=== PATIENT | female | born 1965 | race Caucasian/White ===

== ENCOUNTER 2017-02-23 09:11 | Day surgery (SDC) | payer BC ==
[~2017-02-23 09:11] MED LIST: RINGERS SOLUTION,LACTATED 1,000 ML IV PRN
--- OUTSIDE RECORDS SUMMARY | 2017-02-23 09:16 | XMS REPORT | Continuity of Care Document ---
:1965 Author Organization [facility] ([facility]) Address [address] [place] [address] Phone [phone] Care Team Providers Name Role Phone Unavailable Primary Care Provider Unavailable Source Comments This disclosure is being made pursuant to the Care Everywhere program, applicable federal and state laws, and may not contain all informaitonavailable regarding this patient.[facility] ([facility]) Active Allergies and Adverse Reactions Not on File Current Medications Not on file Active Problems Not on file Immunizations Name Dates Previously Given Next Due Rubella 12/09/1996 Social History Tobacco Use Types Packs/Day Years Used Date Never Assessed Plan of Care Health Maintenance Due Date Last Done Comments HCV Screening 1965 Hepatitis B Vaccine (1 of 3 - Primary Series) 1965 Tdap Vaccine 1976 Lipid Disorder Screening 1983 MMR Vaccine 1983 Td Vaccine 1983 Cervical Cancer Screening 1995 Mammogram 2005 Colonoscopy 2015 Influenza Vaccine: Seasonal (#1) 05/24/2016 Results from Last 3 Months Not on file
[2017-02-23] MEDS ORDERED: RINGERS SOLUTION,LACTATED 1,000 ML IV ONE (09:45)
[2017-02-23] MEDS ORDERED: RINGERS SOLUTION,LACTATED 1,000 ML IV PRN (10:42)
[2017-02-23 11:41] VITALS: BP 123/84
--- NOTE | 2017-02-23 14:04 | OR ---
Operative Report - Dictated Report Narrative: OPERATIVE REPORT DATE OF OPERATION: 02/23/2017 PREOPERATIVE DIAGNOSIS: No prior dedicated colon studies. Family history of colon cancer POSTOPERATIVE DIAGNOSIS: Moderate sigmoid diverticulosis OPERATION: Colonoscopy SURGEON: Gema Lim MD ANESTHESIA: ANALY Gordon CRNA INDICATIONS FOR PROCEDURE: Patient is a 51-year-old female referred by Dr. Matthews. The patient has had no previous dedicated colon studies. Her grandfather had colon cancer at age 60. The patient is currently asymptomatic FINDINGS: Moderate sigmoid diverticulosis otherwise normal colonoscopy to the cecum NARRATIVE OF PROCEDURE: The patient was identified in the holding area, and prior to the administration of anesthetic, a multidisciplinary timeout was observed. With the patient in the left lateral position and after the administration of intravenous sedation, the perineum was inspected. There was no evidence of pilonidal disease or skin breakdown. The external appearance of the anus was normal. Sphincter tone was good. The flexible fiberoptic colonoscope was inserted into the rectum which was insufflated with air. The rectal mucosa and submucosal vascular pattern appeared normal, the prep was seen to be complete. The scope was advanced through a very tortuous sigmoid colon, which contained numerous large non-impacted noninflamed diverticular openings. The scope was advanced up the descending colon, and around the splenic flexure where the triangular haustral architecture of the transverse colon was seen. The scope was advanced across the transverse colon, around the hepatic flexure to the cecum, where the confluence of tenia and the ileocecal valve were identified. The mucosa at this level appeared normal. The scope was then slowly withdrawn in a circular fashion so that all aspects of colonic mucosa were inspected. The colon was normal in caliber and the sigmoid colon was very tortuous. The haustral architecture appeared well preserved throughout with no evidence of external compression. The mucosa and submucosal vascular pattern appeared normal, specifically there was no gross evidence to suggest colitis or inflammatory bowel disease and no AV malformations were seen. The diverticulosis was moderate in degree and confined primarily to the sigmoid colon. No polyps were encountered. The scope was gradually withdrawn to the level of the rectum. As much insufflated air as possible was removed. The scope was withdrawn from the patient and the procedure terminated. The patient tolerated the anesthetic and procedure well without complication and was transferred back to the ambulatory surgery area awake and in stable condition. The patient remained stable throughout a period of postoperative observation. She denied abdominal discomfort, was able to tolerate by mouth intake, and was up without assistance. I shared the operative findings with the patient and she was given copies of the photographs which appear in the medical record. She was discharged home with instructions not to engage in hazardous activity today , but may resume normal activity tomorrow, and advance diet as tolerated. She is to continue those medications as listed in the history and physical exam. A pamphlet on diverticular disease was reviewed with her and a trial of Benefiber or equivalent suggested. RECOMMENDATION: Colon surveillance in 10 years depending upon findings and symptoms Reviewed and electronically signed
== END 2017-02-23 09:12 | disposition home or self-care (01) ==
LOC: AMB 09:11
PROVIDERS: ATTEND Surgery
PROC: 0DJD8ZZ Inspection of Lower Intestinal Tract, Via Natural or Artificial Opening Endoscopic (ICD-10-PCS; principal; 2017-02-23 10:05)
DX: Z12.11 Encounter for screening for malignant neoplasm of colon (principal); K57.30 Diverticulosis of large intestine without perforation or abscess without bleeding; I10 Essential (primary) hypertension; J45.20 Mild intermittent asthma, uncomplicated; E55.9 Vitamin D deficiency, unspecified; F32.9 Major depressive disorder, single episode, unspecified; Z68.28 Body mass index [BMI] 28.0-28.9, adult; Z80.0 Family history of malignant neoplasm of digestive organs